=== PATIENT | male | born 1945 | race Caucasian/White ===

== ENCOUNTER → 2017-01-08 | Outpatient (CLI) | payer MEDICARE, BC | END | disposition disaster alternative care site (69) | LOC: GAIR 11:38 | DX: M79.602 Pain in left arm (principal); I25.10 Atherosclerotic heart disease of native coronary artery without angina pectoris; I82.90 Acute embolism and thrombosis of unspecified vein; E78.5 Hyperlipidemia, unspecified; I10 Essential (primary) hypertension; F17.200 Nicotine dependence, unspecified, uncomplicated; Z95.1 Presence of aortocoronary bypass graft; Z79.82 Long term (current) use of aspirin; Z79.899 Other long term (current) drug therapy | CPT/HCPCS: A0422; A0431; A0436; J3010 ==